=== PATIENT | female | born 1940 | race Caucasian/White ===

== ENCOUNTER 2024-12-03 06:03 | Day surgery (SDC) | payer OTHER, SELFPAY ==
[2024-12-01 12:39] LABS: Hematocrit 37.6 % (37.0-47.0); Hemoglobin 12.1 g/dL (12.0-16.0); Mean Corp Hgb Conc. 32.2 g/dL (33.0-37.0); Mean Corpuscular Hgb 29.9 pg (27.0-31.0); Mean Corpuscular Volume 92.8 fL (81.0-99.0); Mean Platelet Volume 8.7 fL (7.4-10.4); Platelet Count 327 10^3/uL (130-400); Red Blood Cell Count 4.05 10^6/uL (4.20-5.40); Red Cell Dist. Width 13.9 % (11.5-14.5); White Blood Cell Count 7.1 10^3/uL (4.8-10.8)
[2024-12-01 13:11] LABS: ALT (SGPT) 21 U/L (0-35); AST (SGOT) 26 U/L (14-36); Albumin 3.9 g/dl (3.5-5.0); Alkaline Phosphatase 102 U/L (38-126); Blood Urea Nitrogen 23 mg/dl (7-17); Calcium 9.5 mg/dl (8.4-10.2); Carbon Dioxide 27 mmol/L (22-30); Chloride 102 mmol/L (98-107); Glucose 81 mg/dl (70-99); Potassium 4.5 mmol/L (3.5-5.1); Sodium 137 mmol/L (135-145); Total Bilirubin 0.5 mg/dl (0.2-1.3); Total Protein 6.8 g/dl (6.3-8.2); eGFR > 60.00
[2024-12-01 13:23] LABS: Glycohemoglobin (HgbA1c) 5.8 % (4.0-5.6)
[2024-12-01 14:10] VITALS: BMI 26.7
[2024-12-02 12:30] VITALS: BMI 26.7
[2024-12-03] VITALS (15 sets, daily range): BP systolic 84–137; BP diastolic 45–83
[2024-12-03] MEDS: CELEBREX 200 MG PO (06:40)
[2024-12-03] MEDS: BACTROBAN NASAL 1 GRAM NASAL (06:40)
[2024-12-03] MEDS: TYLENOL 1000 MG PO (06:40)
[2024-12-03] MEDS: NORMOSOL-R/PLASMALYTE-A 1000 IV (06:44)
[2024-12-03] MEDS: DILAUDID 0.25 MG IV (09:15)
[2024-12-03] MEDS: ANCEF 5 IV (11:52)
== END 2024-12-03 12:25 | disposition home or self-care (01) ==
LOC: SDS 06:03
PROVIDERS: ATTENDING PHYSICIAN Orthopaedic Surgery Hand Surgery; FAMILY PHYSICIAN Student in an Organized Health Care Education/Training Program; REFERRING PHYSICIAN Internal Medicine Cardiovascular Disease
DX: M19.011 Primary osteoarthritis, right shoulder (principal)
CPT/HCPCS: 23472; 36415; 73020; 80053; 83036; 85027; 87070; C1713; C1776